=== PATIENT | female | born 1990 | race Caucasian/White ===

== ENCOUNTER 2025-04-19 12:09 | Emergency (ER) | payer SELFPAY ==
[2025-04-19] MEDS: Fluorescein 1 MG Ophth Strip EYELF ONE (12:35)
[2025-04-19] MEDS: Tetracaine HCl/PF 0.5% 4 ML Bottle EYELF ONE (12:39)
== END 2025-04-19 12:55 | disposition home or self-care (01) ==
LOC: VM.ED 12:09
DX: S05.02XA Injury of conjunctiva and corneal abrasion without foreign body, left eye, initial encounter (principal); W45.8XXA Other foreign body or object entering through skin, initial encounter
CPT/HCPCS: 99283; J3490